=== PATIENT | female | born 1985 | race Caucasian/White ===

== ENCOUNTER 2023-09-19 11:50 | Inpatient (IN) | payer MEDICAID ==
[~2023-09-19] VITALS: Ht 170.2 cm; Wt 67.3 kg
[2023-09-19] MEDS ORDERED: ondansetron 4mg rapidly disintigrating tab PO ONE (12:05)
[2023-09-19 13:30] LABS: BASOPHILS # (AUTO) 0.1 X10'3 (0-0.2); BASOPHILS % (AUTO) 0.6 % (0-1); EOSINOPHILS % (AUTO) 0.1 % (0-6); HEMOGLOBIN 13.8 g/dl (12.0-16.0); LYMPHOCYTES # (AUTO) 1.6 X10'3 (1.1-4.8); LYMPHOCYTES % (AUTO) 11.1 % (21-51); MEAN CORPUSCULAR HEMOGLOBIN 31.7 PG (27.0-31.0); MEAN CORPUSCULAR HGB CONC 32.8 g/dL (33.0-36.5); MEAN CORPUSCULAR VOLUME 96.6 FL (78-98); MEAN PLATELET VOLUME 8.4 FL (7.4-10.4); MONOCYTES # (AUTO) 0.4 X10'3 (0-0.9); MONOCYTES % (AUTO) 2.9 % (2-12); NEUTROPHILS % (AUTO) 85.3 % (42-75); PLATELET COUNT 314 X10'3 (140-440); RED BLOOD COUNT 4.35 X10'6 (4.20-5.60); RED CELL DISTRIBUTION WIDTH 13.6 % (11.5-14.5)
[2023-09-19] MEDS: ringers solution, lacted 1,000 ML IV ONE (13:31)
[2023-09-19 13:44] LABS: ALANINE AMINOTRANSFERASE 13 U/L (12-78); ALBUMIN 3.7 G/DL (3.4-5.0); ALBUMIN/GLOBULIN RATIO 0.9 (1.1-1.5); ALKALINE PHOSPHATASE 63 IU/L (46-116); ANION GAP 6 (8-16); ASPARTATE AMINO TRANSFERASE 12 U/L (10-37); BILIRUBIN,TOTAL 0.5 MG/DL (0.1-1.0); BLOOD UREA NITROGEN 7 MG/DL (7-18); CALCIUM 8.4 MG/DL (8.5-10.1); CHLORIDE 108 MMOL/L (99-107); GLUCOSE 95 MG/DL (70-104); LIPASE 34 U/L (16-77); POTASSIUM 4.2 MMOL/L (3.5-5.1); SODIUM 141 MMOL/L (135-145); TOTAL PROTEIN 7.6 G/DL (6.4-8.2); eCRCL 107 ML/MIN; eGFR > 90 ML/MIN
[2023-09-19] MEDS: acetaminophen 325mg tablet PO ONE (13:52)
[2023-09-19 14:31] LABS: URINE HCG NEGATIVE (NEG)
[2023-09-19 14:33] LABS: BILIRUBIN,URINE NEGATIVE (Neg); CLARITY,URINE SLIGHTLY CLOUDY (Clear); COLOR,URINE YELLOW (Yellow); GLUCOSE, URINE NEGATIVE (Neg); KETONES,URINE >=80 mg/dl (Neg); LEUKOCYTE ESTERASE ,URINE NEGATIVE (Neg); NITRITES, URINE NEGATIVE (Neg); OCCULT BLOOD,URINE NEGATIVE (Neg); PH,URINE 7.5 (4.8-8.0); PROTEIN,URINE NEGATIVE (Neg)
[2023-09-19 14:49] LABS: UA COLLECTION TYPE CLN CATCH MIDSTREAM
[2023-09-19] MEDS: phenobarbital sod 130mg/ml inj. IV ONE (14:49)
[2023-09-19 14:50] LABS: MUCUS STRANDS FEW /LPF (Neg); SQUAMOUS EPITHELIAL CELL,UR MANY /LPF (FEW)
[2023-09-19] MEDS: diphenhydrAMINE 50 mg/ml inj IM ONE (14:50)
[2023-09-19] MEDS: haloperidol lactate 5mg/ml inj IM ONE (14:50)
[2023-09-19 14:53] LABS: BACTERIA,URINE FEW /HPF (Neg); WBC,URINE 0-4 /HPF (0-4)
[2023-09-19 15:51] LABS: URINE AMPHETAMINE SCREEN NEGATIVE (Neg); URINE BARBITUATE SCREEN NEGATIVE (Neg); URINE BENZODIAZEPINES SCREEN NEGATIVE (Neg); URINE CANNABINOID SCREEN NEGATIVE (Neg); URINE COCAINE SCREEN NEGATIVE (Neg); URINE METHADONE SCREEN NEGATIVE (Neg); URINE OPIATE SCREEN NEGATIVE (Neg); URINE PHENCYCLIDINE SCREEN NEGATIVE (Neg)
[2023-09-19] MEDS: metoclopramide 5 mg/ml inj IV ONE (16:49)
[2023-09-19] MEDS: diphenhydrAMINE 50 mg/ml inj IV ONE (16:52)
[2023-09-19] MEDS ORDERED: phenobarbital inj 130 MG in normal saline 100ml IV soln 99 ML IV SCH (20:00)
[2023-09-19] MEDS ORDERED: magnesium hydroxide 30ml (MOM) UD suspension PO PRN (21:15)
[2023-09-19] MEDS ORDERED: magnesium 4gm in 100ml NS 100 ML IV PRN (21:15)
[2023-09-19] MEDS ORDERED: magnesium 2GM in 50ml NS 50 ML IV PRN (21:15)
[2023-09-19] MEDS ORDERED: metoclopramide 5 mg/ml inj IV PRN (21:15)
[2023-09-19] MEDS ORDERED: potassium Cl 40MEQ/1/2NS 520ml 520 ML IV PRN (21:15)
[2023-09-19] MEDS ORDERED: mag hydrox/Alum hydrox/simeth 30ml oral suspension PO PRN (21:15)
[2023-09-19] MEDS ORDERED: magnesium Cl slow-release 64mg tablet PO PRN (21:15)
[2023-09-19] MEDS ORDERED: potassium Cl 20 mEq SR tablet PO PRN ×2 (21:15)
[2023-09-19] MEDS: ringers solution, lacted 1,000 ML IV SCH (21:45)
[2023-09-19] MEDS: ketorolac tromethamine 15mg/ml inj. IV ONE (21:45)
[2023-09-20] MEDS: piperacillin/tazo 3.375gm/50ml 50 ML IV SCH (00:35)
[2023-09-20] MEDS ORDERED: NORMAL SALINE IV ONE (06:45)
[2023-09-20] MEDS ORDERED: SINCALIDE IV ONE (06:45)
[2023-09-20] MEDS: SINCALIDE IV ONE (07:55)
[2023-09-20] MEDS: NORMAL SALINE IV ONE (07:55)
[2023-09-20 08:00] VITALS: RESP 18
[2023-09-20] MEDS: K and/or MAG REPLACEMENT MC SCH (08:00)
[2023-09-20] MEDS: acetaminophen 325mg tablet PO PRN (08:50)
[2023-09-20] MEDS: heparin, porcine 5000 units/ml vial SQ SCH (08:50)
[2023-09-20] MEDS: ondansetron/PF 4mg/2ml inj IV PRN (09:08)
[2023-09-20] MEDS: morphine 2 MG/ML inj. syringe IV PRN (09:58)
[2023-09-20 11:00] VITALS: BP 104/56; PULSE 62; RESP 16; TEMP 98; O2SAT 98
[2023-09-20 12:40] LABS: BASOPHILS % (AUTO) 0.5 % (0-1); EOSINOPHILS # (AUTO) 0.1 X10'3 (0-0.9); EOSINOPHILS % (AUTO) 0.9 % (0-6); HEMOGLOBIN 12.6 g/dl (12.0-16.0); LYMPHOCYTES # (AUTO) 2.2 X10'3 (1.1-4.8); LYMPHOCYTES % (AUTO) 24.6 % (21-51); MEAN CORPUSCULAR HEMOGLOBIN 32.8 PG (27.0-31.0); MEAN CORPUSCULAR HGB CONC 33.9 g/dL (33.0-36.5); MEAN CORPUSCULAR VOLUME 96.6 FL (78-98); MEAN PLATELET VOLUME 8.7 FL (7.4-10.4); MONOCYTES # (AUTO) 0.3 X10'3 (0-0.9); MONOCYTES % (AUTO) 3.4 % (2-12); NEUTROPHILS # (AUTO) 6.4 X10'3 (1.8-7.7); NEUTROPHILS % (AUTO) 70.6 % (42-75); PLATELET COUNT 224 X10'3 (140-440); RED BLOOD COUNT 3.83 X10'6 (4.20-5.60); RED CELL DISTRIBUTION WIDTH 13.6 % (11.5-14.5); WHITE BLOOD COUNT 9.1 X10'3 (4.5-11.0)
[2023-09-20 12:56] LABS: ALANINE AMINOTRANSFERASE 9 U/L (12-78); ALBUMIN/GLOBULIN RATIO 0.9 (1.1-1.5); ALKALINE PHOSPHATASE 54 IU/L (46-116); ANION GAP 6 (8-16); ASPARTATE AMINO TRANSFERASE 10 U/L (10-37); BLOOD UREA NITROGEN 7 MG/DL (7-18); BUN/CREATININE RATIO 9.3 (10.0-20.0); CALCIUM 8.2 MG/DL (8.5-10.1); CHLORIDE 105 MMOL/L (99-107); CHOL/HDL RATIO 2.9 (0.00-4.99); CHOLESTEROL 126 MG/DL (0-200); CREATININE 0.75 MG/DL (0.40-0.90); GLUCOSE 70 MG/DL (70-104); HDL CHOLESTEROL 44 MG/DL (35-60); LDL CHOLESTEROL 70 MG/DL (50-100); MAGNESIUM 1.8 MG/DL (1.5-2.4); PHOSPHORUS 3.6 MG/DL (2.3-4.5); POTASSIUM 3.9 MMOL/L (3.5-5.1); SODIUM 138 MMOL/L (135-145); TOTAL PROTEIN 6.3 G/DL (6.4-8.2); TRIGLYCERIDES 102 MG/DL (20-135); eCRCL 100 ML/MIN; eGFR 87 ML/MIN
[2023-09-20] MEDS ORDERED: METO5TAB98 PO (13:42)
[2023-09-20 15:04] VITALS: RESP 16
== END 2023-09-20 16:06 | disposition home or self-care (01) | DRG 249 ==
LOC: ER 11:51 → ED HOLD 21:23 → PCU 3S 09-20 05:30
PROVIDERS: ADMIT Internal Medicine Critical Care Medicine; ATTEND Family Medicine
PROC: CF1C1ZZ Planar Nuclear Medicine Imaging of Hepatobiliary System, All using Technetium 99m (Tc-99m) (ICD-10-PCS; principal; 2023-09-20)
DX: K52.9 Noninfective gastroenteritis and colitis, unspecified (principal); D72.823 Leukemoid reaction; F17.210 Nicotine dependence, cigarettes, uncomplicated; Z90.710 Acquired absence of both cervix and uterus; Z91.041 Radiographic dye allergy status; Z98.51 Tubal ligation status
CPT/HCPCS: 36415; 76700; 78227; 80053; 80061; 80305; 81001; 81025; 83036; 83690; 83735; 84100; 84145; 85025; 99285; A9537; G0378; J1200; J1644; J1885; J2270; J2405; J2543; J2765; J2805; J3490; J7040; J7120